=== PATIENT | female | born 1990 | race Caucasian/White ===

== ENCOUNTER 2018-03-03 14:41 | Outpatient (CLI) | payer BC | END 2018-03-03 14:42 | disposition home or self-care (01) | LOC: BICRAD 14:41 | PROVIDERS: ATTEND Internal Medicine | DX: M25.511 Pain in right shoulder (principal) ==

== ENCOUNTER 2019-01-09 08:19 | Outpatient (CLI) | payer BC ==
--- NOTE | 2019-01-09 10:13 | ULT ---
ABDOMEN ULTRASOUND: HISTORY: A 28-year-old female with chronic diarrhea. FINDINGS: The liver, spleen, gallbladder, kidneys, and visualized portions of the pancreas, aorta, and IVC appe ar normal. No free fluid is seen. The common duct measures 2 mm in diameter. IMPRESSION: Unremarkable examination. POS: C
== END 2019-01-09 08:20 | disposition home or self-care (01) ==
LOC: BICULT 08:19
PROVIDERS: ATTEND Internal Medicine Gastroenterology
DX: K52.9 Noninfective gastroenteritis and colitis, unspecified (principal)
CPT/HCPCS: 76700

== ENCOUNTER 2019-09-25 06:18 | Day surgery (SDC) | payer BC ==
[2019-09-22 10:55] VITALS: BMI 22.8
[2019-09-25] MEDS ORDERED: Fentanyl 250 MCG/5 ML VIAL ONE (06:35)
[2019-09-25 07:19] LABS: #Eosinphils 0.5 thou/uL (0.0-0.7); #Monocytes 0.3 thou/uL (0.11-0.59); #Neutrophils 2.7 thou/uL (1.40-6.50); %Basophils 0.8 % (0.0-1.0); %Eosinophils 8.7 % (0.0-10.0); %Lymphocytes 36.1 % (21.0-51.0); %Monocytes 6.1 % (0.0-10.0); %Neutrophils 48.3 % (42.0-75.0); Mean Corpuscular HGB CONC 33.9 g/dL (32.0-36.0); Mean Corpuscular Volume 85.6 fL (78.0-98.0); Mean Platelet Volume 6.7 fL (7.4-10.4); Platelet Count 302 thou/uL (130-400); RBC Distribution Width 11.4 % (11.5-14.5); Red Blood Cell (RBC) Count 4.49 mill/uL (4.20-5.40); White Blood Cell (WBC) Count 5.5 thou/uL (4.8-10.8)
[2019-09-25] MEDS ORDERED: Midazolam HCl 2 mg/2 ml Vial ONE (07:20)
[2019-09-25 07:31] LABS: Anion Gap 9 mmol/L (10-20); BUN (Urea Nitrogen) 11 mg/dL (7.0-18.7); Calc. Creatinine Clearance 146 mL/min (70-130); Carbon Dioxide 27 mmol/L (22-29); Chloride 106 mmol/L (98-107); Estimated GFR-MDRD Greater than 90; Glucose 93 mg/dL (70-105); Potassium 4.4 mmol/L (3.5-5.1); Sodium 138 mmol/L (136-145)
--- NOTE | 2019-09-25 09:33 | OP ---
DATE OF PROCEDURE: 09/25/2019 ETCHED CIRCUIT PROCESSOR: Nishi Merrill PA-C PROCEDURE PERFORMED: Left L4-L5 microdiskectomy, operative microscope. DESCRIPTION OF PROCEDURE: The patient was brought to the operating room and intubated. She was rolled in a prone position on gel-filled chest rolls. An incision was made exposing L4 and L5 on the left and the level was confirmed by x-ray. We performed a left L4-L5 hemilaminectomy and removed via ligament, identified the left L5 nerve root and beneath this, there was a bulgy disk herniation. This was incised and debrided multiple fragments using the operative microscope and microdissection techniques. A complete decompression of left L5 was achieved. The wound was then extensively irrigated. MAC hemostasis was secured. Vancomycin powder was applied and the wound was closed in anatomic layers. Job ID: [id number]
[2019-09-25] MEDS ORDERED: Fentanyl 100 MCG/2 ML VIAL ONE ×2 (09:58→10:08)
[2019-09-25] MEDS ORDERED: Dexamethasone 20 MG/5 ML VIAL ONE (09:59)
[2019-09-25] MEDS ORDERED: PROPOFOL 200 MG/20 ML VIAL ONE (09:59)
[2019-09-25] MEDS ORDERED: Rocuronium Bromide 10 MG/ML (10ML VIAL) ONE (09:59)
[2019-09-25] MEDS ORDERED: Ondansetron PF 4 MG/2 ML Vial ONE (09:59)
[2019-09-25] MEDS ORDERED: Glycopyrrolate 0.2 MG/ML 5 ML SYRINGE ONE (09:59)
[2019-09-25] MEDS ORDERED: ePHEDrine/0.9% NaCl/PF SYRINGE 50 mg/10 ml ONE (09:59)
[2019-09-25] MEDS ORDERED: Lidocaine 1% PF 5 ML VIAL ONE (09:59)
[2019-09-25] MEDS ORDERED: HYDROcodone/Acetaminophen 5/325 mg Tablet ONE (11:18)
--- NOTE | 2019-09-26 14:07 | EKG ---
Test Reason : PREOP Blood Pressure : / mmHG Vent. Rate : 066 BPM Atrial Rate : 066 BPM P-R Int : 158 ms QRS Dur : 082 ms QT Int : 408 ms P-R-T Axes : 045 064 030 degrees QTc Int : 427 ms Normal sinus rhythm with sinus arrhythmia Normal ECG No previous ECGs available Confirmed by KLARISSA DIEHL, DR. Noe ([id number]) on 09/26/2019 2:07:22 PM Referred By: BARNEY Confirmed By:DR. Hasmukh CYR MD
== END 2019-09-25 12:10 | disposition home or self-care (01) ==
LOC: SDC 06:18
PROVIDERS: ATTEND Neurological Surgery
DX: M51.16 Intervertebral disc disorders with radiculopathy, lumbar region (principal)
CPT/HCPCS: 36415; 76000; 80048; 85025; 93005; 93010; J0131; J0690; J1100; J2001; J2250; J2405; J2704; J3010; J3370

== ENCOUNTER 2025-05-30 14:44 | Outpatient (CLI) | payer OTHER | END 2025-05-30 14:45 | disposition home or self-care (01) | LOC: SCSMRI 14:44 | PROVIDERS: ATTEND Family Medicine | DX: R51.9 Headache, unspecified (principal); H53.9 Unspecified visual disturbance; R42 Dizziness and giddiness | CPT/HCPCS: 70551 ==